=== PATIENT | female | born 1965 | race African-American/Black ===

== ENCOUNTER 2017-04-08 13:19 | Emergency (ER) | payer MEDICAID ==
[~2017-04-08] VITALS: Ht 172.7 cm; Wt 74.3 kg
[2017-04-08 14:28] LABS: BASOPHILS % 0.5 % (0.0-2.0); CHLORIDE 104 mEq/L (98-107); EOSINOPHILS % 3.8 % (0.0-5.0); HEMOGLOBIN. 11.8 g/dL (12.0-16.0); LYMPHOCYTES % 45.4 % (20.0-50.0); MEAN CORPUSCULAR HEMOGLOBIN 31.5 pg (28.0-32.0); MEAN CORPUSCULAR VOLUME 96.6 fL (81.0-99.0); MEAN PLATELET VOLUME 10.3 fl (7.4-10.4); MONOCYTES % 6.8 % (2.0-8.0); NEUTROPHILS % 43.5 % (40.0-76.0); PLATELET 147 x1000/uL (130-400); RED BLOOD CELL COUNT 3.73 mill/uL (4.2-5.4); RED CELL DISTRIBUTION WIDTH 12.5 % (11.6-14.6)
[2017-04-08 14:31] LABS: PROTHROMBIN TIME 10.3 sec (9.4-11.6)
[2017-04-08 14:37] LABS: CARBON DIOXIDE 30 mEq/L (21-32)
[2017-04-08 15:43] VITALS: BP 110/72
== END 2017-04-08 15:45 | disposition home or self-care (01) ==
LOC: ER 13:43
DX: R42 Dizziness and giddiness (principal); R53.1 Weakness; R51 Headache; G43.909 Migraine, unspecified, not intractable, without status migrainosus; Z88.0 Allergy status to penicillin
CPT/HCPCS: 36415; 70450; 80053; 85025; 85610; 93005; 99285

== ENCOUNTER 2022-03-10 03:56 | Emergency (ER) | payer MEDICAID ==
[~2022-03-10] VITALS: Ht 172.7 cm; Wt 81.0 kg
[2022-03-10] MEDS ORDERED: ONDANSETRON HCL 4MG/2ML INJ IV STA (05:36)
[2022-03-10] MEDS ORDERED: VISCOUS LIDOCAINE 2% 15 ML UDC PO ONE (05:45)
[2022-03-10] MEDS ORDERED: MAGNESIUM/ALUMINUM HYDROXIDE/SIMETHICONE 30ML UDC PO ONE (05:45)
[2022-03-10 06:28] LABS: EOSINOPHILS % 6.7 % (0.0-5.0); HEMATOCRIT. 34.9 % (36.0-48.0); HEMOGLOBIN. 11.8 g/dL (12.0-16.0); LYMPHOCYTES % 41.1 % (20.0-50.0); MEAN CORPUSCULAR HEMOGLOBIN 32.7 pg (28.0-32.0); MEAN CORPUSCULAR VOLUME 96.9 fL (81.0-99.0); MEAN PLATELET VOLUME 10.6 fl (7.4-10.4); MONOCYTES % 10.4 % (2.0-8.0); NEUTROPHILS % 40.8 % (40.0-76.0); PLATELET 145 x1000/uL (130-400); RED CELL DISTRIBUTION WIDTH 12.7 % (11.6-14.6)
[2022-03-10 06:37] LABS: CHLORIDE 103 mEq/L (98-107)
[2022-03-10 06:47] LABS: ETHANOL BLOOD < 10 mg/dL
[2022-03-10] MEDS ORDERED: ONDA4TAB50 MT (09:45)
[2022-03-10] MEDS ORDERED: MAG355OR21 MT (09:45)
[2022-03-10 10:57] VITALS: BP 131/82
== END 2022-03-10 11:01 | disposition home or self-care (01) ==
LOC: ER 03:56
DX: R10.13 Epigastric pain (principal); D64.9 Anemia, unspecified; Z13.9 Encounter for screening, unspecified; Z88.0 Allergy status to penicillin; Z88.6 Allergy status to analgesic agent; Z98.890 Other specified postprocedural states; Z86.59 Personal history of other mental and behavioral disorders
CPT/HCPCS: 36415; 71045; 76705; 80053; 80320; 83605; 83690; 83880; 84484; 85025; 93005; 96374; 99285; J2405; G0480